=== PATIENT | male | born 1985 | race Asian ===

== ENCOUNTER 2017-03-01 21:51 | Emergency (ER) | payer OTHER ==
[~2017-03-01] VITALS: Ht 167.6 cm; Wt 79.4 kg
[2017-03-01] MEDS ORDERED: ORPHENADRINE 60 MG/2 ML (NORFLEX) AMP IM ONE (22:15)
[2017-03-01] MEDS ORDERED: KETOROLAC 60 MG/2 ML VIAL IM ONE (22:15)
[2017-03-01 22:25] LABS: BILIRUBIN,URINE NEGATIVE (NEGATIVE); KETONES,URINE NEGATIVE (NEGATIVE); LEUKOCYTE ESTERASE ,URINE NEGATIVE (NEGATIVE); NITRITE,URINE NEGATIVE (NEGATIVE); PH,URINE 7 (5-9); PROTEIN,URINE NEGATIVE (NEGATIVE); UROBILINOGEN,URINE NORMAL (NORMAL)
[2017-03-01 23:01] VITALS: BP 136/82
[2017-03-02 02:29] LABS: SQUAMOUS EPITHELIAL CELL,UR RARE /HPF
--- NOTE | 2017-03-02 04:59 | ED Back Pain ---
General Chief Complaint: Back Problems Stated Complaint: BACK PAIN Nursing Triage Note: pt was brought in via wheelchair. pt complains of lower back pain bilaterally. Pt states pain was in neck area yesterday and now is in his lower back. Pt states pain hurts worse when he walks. pt denies injury at this time. Nursing Sepsis Screen: No Definite Risk Source of Information: Patient Exam Limitations: No Limitations History of Present Illness Time Seen by Provider: 21:57 Initial Comments This 31-year-old gentleman presents to the emergency room with complaints of intense lower back pain that makes it difficult to sit or walk. Pain started around 16:00 when he stood up from a sitting position after studying for a prolonged period of time. He denies any paresthesias, lower extremity weakness , or bowel or bladder dysfunction. Yesterday he had some more mild pain in the upper back. He took 2 tablets of ibuprofen at 19:00 without much benefit. He denies any trauma to his back or any prior problems. Allergies and Home Medications Allergies Coded Allergies: No Known Drug Allergies (Unverified , 03/01/17) Constitutional: no symptoms reported EENTM: no symptoms reported Respiratory: no symptoms reported Cardiovascular: no symptoms reported Gastrointestinal: no symptoms reported Musculoskeletal: see HPI Skin: no symptoms reported Psychiatric/Neurological: No Symptoms Reported Past [id number]-Bumuze Hx Patient Social History Alcohol Use: Denies Use Recreational Drug Use: No Smoking Status: Never a Smoker 2nd Hand Smoke Exposure: No Recent Foreign Travel: No Contact w/Someone Who Travel: No Recent Infectious Disease Expo: No Recent Hopitalizations: No Seasonal Allergies Seasonal Allergies: No Surgeries HX Surgeries: No Respiratory Hx Respiratory Disorders: No Cardiovascular Hx Cardiac Disorders: No Neurological Hx Neurological Disorders: No Reproductive System Hx Reproductive Disorders: No Genitourinary Hx Genitourinary Disorders: No Gastrointestinal Hx Gastrointestinal Disorders: No Musculoskeletal Hx Musculoskeletal Disorders: No Endocrine Hx Endocrine Disorders: No HEENT HX ENT Disorders: No Cancer Hx Cancer: No Psychosocial Hx Psychiatric Problems: No Integumentary HX Skin/Integumentary Disorder: No Blood Transfusions Hx Blood Disorders: No Physical Exam Vital Signs Vital Sign - Last 12Hours 03/01/17 21:59 Temp 98.3 Pulse 81 Resp 18 B/P (MAP) 144/84 Pulse Ox 100 O2 Delivery Room Air Capillary Refill : Less Than 3 Seconds General Appearance: WD/WN, Mild Distress HEENT: PERRL/EOMI, Normal ENT Inspection Neck: Normal Inspection Cardiovascular: Regular Rate, Rhythm, No Edema, No Murmur Respiratory: Lungs Clear, Normal Breath Sounds, No Accessory Muscle Use, No Respiratory Distress Gastrointestinal: Non Tender, Soft Back: Normal Inspection, Vertebral Tenderness (lumbar region), Other ( tenderness in the lumbar paraspinous region) Extremity: Normal Inspection, No Pedal Edema Neurologic/Psychiatric: Alert, Oriented x3, No Motor/Sensory Deficits, Normal 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, 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 as 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 Skin: Normal Color, Warm/Dry Progress/Results/Core Measures Results/Orders Lab Results Laboratory Tests Test 03/01/17 21:53 03/01/17 22:17 Range/Units Lab Scanned Report LAB Reports [id number] Urine Color YELLOW Urine Clarity SLIGHTLY CLOUDY Urine pH 7 5-9 Urine Specific [place] 1.010 L 1.016-1.022 Urine Protein NEGATIVE NEGATIVE Urine Glucose (UA) NEGATIVE NEGATIVE Urine Ketones NEGATIVE NEGATIVE Urine Nitrite NEGATIVE NEGATIVE Urine Bilirubin NEGATIVE NEGATIVE Urine Urobilinogen NORMAL NORMAL MG/DL Urine Leukocyte Esterase NEGATIVE NEGATIVE Urine RBC (Auto) NEGATIVE NEGATIVE Urine RBC NONE /HPF Urine WBC NONE /HPF Urine Squamous Epithelial Cells RARE /HPF Urine Crystals NONE /LPF Urine Bacteria NONE /HPF Urine Casts NONE /LPF Urine Mucus NEGATIVE /LPF Urine Culture Indicated NO My Orders Orders - JANA ROGERS MD Ua Culture If Indicated (03/01/17 22:02) Ketorolac Injection (Toradol Injection) (03/01/17 22:15) Orphenadrine Injection (Norflex Injectio (03/01/17 22:15) Medications Given in ED Vital Signs/I&O Vital Sign - Last 12Hours 03/01/17 03/01/17 21:59 23:01 Temp 98.3 98.3 Pulse 81 78 Resp 18 18 B/P (MAP) 144/84 Pulse Ox 100 100 O2 Delivery Room Air Blood Pressure Mean: 104 Progress Note : Progress Note Patient was treated with Toradol and Norflex injections with good improvement. Departure Impression Impression: Primary Impression: Low back pain Qualified Codes: M54.5 - Low back pain Disposition: 01 HOME, SELF-CARE Condition: Improved Departure-Patient Inst. Decision time for Depature: 22:30 Referrals: NO,LOCAL PHYSICIAN (PCP) Primary Care Physician Add. Discharge Instructions: See handwritten discharge instructions and Rx from EMR down time All discharge instructions reviewed with patient and/or family. Voiced understanding. JANA ROGERS MD Mar 02, 2017 04:59
== END 2017-03-01 23:01 | disposition home or self-care (01) ==
LOC: ER 21:53
DX: M54.5 Low back pain (principal)
CPT/HCPCS: 81000; 96372; 99282